=== PATIENT | male | born 1995 | race American Indian/Alaskan Native ===

== ENCOUNTER 2020-04-29 22:07 | Emergency (ER) | payer SELFPAY | END 2020-04-30 01:15 | disposition left against medical advice (07) | LOC: ED 22:07 | DX: Z00.8 Encounter for other general examination (principal); Z53.21 Procedure and treatment not carried out due to patient leaving prior to being seen by health care provider ==

== ENCOUNTER 2020-06-21 12:10 | Emergency (ER) | payer SELFPAY ==
--- NOTE | 2020-06-21 12:24 | Event Note ---
ED Screening Note Date of service: 06/21/20 Time: 12:21 ED Screening Note: Patient complains of dizziness starting this morning Denies headache, nausea/vomiting, neurological symptoms, chest pain, or shortness of breath Dizziness feels like lightheadedness No head trauma per patient This initial assessment/diagnostic orders/clinical plan/treatment(s) is/are subject to change based on patients health status, clinical progression and re- assessment by fellow clinical providers in the ED. Further treatment and workup at subsequent clinical providers discretion. Patient/guardian urged not to elope from the ED as their condition may be serious if not clinically assessed and managed. Initial orders include: Labs EKG
--- NOTE | 2020-06-21 12:34 | Emergency Department Report ---
ED General Adult HPI - General Chief complaint: Dizziness Stated complaint: DIZZINESS PUI?: No Time Seen by Provider: 06/21/20 12:20 Source: patient Mode of arrival: Ambulatory Limitations: No Limitations - History of Present Illness Initial comments: Patient is a 25-year-old -[place] male that comes to the emergency room with nausea, diarrhea and dizziness. He states that it started last night into this morning. He was at work and felt bad so they sent him here. He is ambulatory nontoxic and [id number] on arrival to the ER. He denies any abdominal pain per se. Patient endorses chills. He denies any known fever. Patient denies shortness of breath or chest pain. He denies any known exposure to Covid. He has not been immunized for COVID-19. He was tested back in April and was negative. Patient has a history of ulcerative colitis in 2016 but he has been without any symptoms for years. He denies any bloody diarrhea. He states that it is just watery diarrhea. He denies vomiting any blood. Patient has no hypotension, tachycardia or fever on arrival to the ER. -: Gradual, days(s) Consistency: intermittent Improves with: none Worsens with: none Associated Symptoms: fever/chills, nausea/vomiting, other (diarrhea). denies: confusion, chest pain, cough, diaphoresis, headaches, loss of appetite, malaise, shortness of breath, syncope, weakness - Related Data Previous Rx's Medication Instructions Recorded Last Taken Type Ondansetron [Zofran Odt] 4 mg PO Q8HR PRN #10 tab.rapdis 06/21/20 Unknown Rx Allergies Allergy/AdvReac Type Severity Reaction Status Date / Time No Known Allergies Allergy Verified 06/21/20 12:15 ED Review of Systems ROS: Stated complaint: DIZZINESS Other details as noted in HPI Comment: All other systems reviewed and negative ED Past Medical Hx - Past Medical History Previous Medical History?: Yes Additional medical history: ulcerative colitis - Surgical History Past Surgical History?: No - Family History Family history: no significant - Social History Smoking Status: Never Smoker Substance Use Type: Alcohol, Marijuana - Medications Home Medications: Home Medications Medication Instructions Recorded Confirmed Last Taken Type Ondansetron [Zofran Odt] 4 mg PO Q8HR PRN #10 tab.rapdis 03/17/21 Unknown Rx ED Physical Exam - General Limitations: No Limitations General appearance: alert, in no apparent distress - Head Head exam: Present: atraumatic, normocephalic - Eye Eye exam: Present: normal appearance - ENT ENT exam: Present: mucous membranes moist - Neck Neck exam: Present: normal inspection - Respiratory Respiratory exam: Present: normal lung sounds bilaterally. Absent: respiratory distress - Cardiovascular Cardiovascular Exam: Present: regular rate, normal rhythm. Absent: systolic murmur, diastolic murmur, rubs, gallop - GI/Abdominal GI/Abdominal exam: Present: soft, normal bowel sounds - Rectal Rectal exam: Present: deferred - Extremities Exam Extremities exam: Present: normal inspection - Back Exam Back exam: Present: normal inspection - Neurological Exam Neurological exam: Present: alert, oriented X3 - Psychiatric Psychiatric exam: Present: normal affect, normal mood - Skin Skin exam: Present: warm, dry, intact, normal color. Absent: rash ED Course Vital Signs 06/21/20 12:15 Temperature 98.6 F Pulse Rate 80 Respiratory 20 Rate Blood Pressure 150/82 O2 Sat by Pulse 100 Oximetry ED Medical Decision Making - Lab Data Result diagrams: 06/21/20 12:38 06/21/20 12:38 - EKG Data EKG shows normal: sinus rhythm Rate: normal - EKG Data When compared to previous EKG there are: no significant change Interpretation: no acute changes - Medical Decision Making Labs 06/21/20 06/21/20 06/21/20 12:38 12:38 13:04 WBC 11.3 H RBC 4.65 Hgb 13.4 Hct 40.1 MCV 86 MCH 29 MCHC 33 RDW 13.9 Plt Count 225 Lymph % (Auto) 24.5 [place] % (Auto) 6.5 Eos % (Auto) 2.0 Baso % (Auto) 0.4 Lymph # (Auto) 2.8 [place] # (Auto) 0.7 Eos # (Auto) 0.2 Baso # (Auto) 0.0 Seg Neutrophils % 66.6 Seg Neutrophils # 7.5 Sodium 137 Potassium 3.8 Chloride 99.3 Carbon Dioxide 28 Anion Gap 14 BUN 8 L Creatinine 1.1 Estimated GFR > 60 BUN/Creatinine Ratio 7 Glucose 113 H Calcium 9.6 Total Bilirubin 0.30 AST 21 ALT 25 Alkaline Phosphatase 106 Troponin T < 0.010 Total Protein 7.9 Albumin 4.5 Albumin/Globulin Ratio 1.3 Lipase 17 Urine Color Urine Turbidity Urine pH Ur Specific [place] Urine Protein Urine Glucose (UA) Urine Ketones Urine Blood Urine Nitrite Urine Bilirubin Urine Urobilinogen Ur Leukocyte Esterase Urine WBC (Auto) Urine RBC (Auto) 06/21/20 Unknown WBC RBC Hgb Hct MCV MCH MCHC RDW Plt Count Lymph % (Auto) [place] % (Auto) Eos % (Auto) Baso % (Auto) Lymph # (Auto) [place] # (Auto) Eos # (Auto) Baso # (Auto) Seg Neutrophils % Seg Neutrophils # Sodium Potassium Chloride Carbon Dioxide Anion Gap BUN Creatinine Estimated GFR BUN/Creatinine Ratio Glucose Calcium Total Bilirubin AST ALT Alkaline Phosphatase Troponin T Total Protein Albumin Albumin/Globulin Ratio Lipase Urine Color Colorless Urine Turbidity Clear Urine pH 6.0 Ur Specific [place] 1.002 L Urine Protein <15 mg/dl Urine Glucose (UA) Neg Urine Ketones Neg Urine Blood Neg Urine Nitrite Neg Urine Bilirubin Neg Urine Urobilinogen < 2.0 Ur Leukocyte Esterase Neg Urine WBC (Auto) < 1.0 Urine RBC (Auto) < 1.0 Vital Signs 06/21/20 12:15 Temperature 98.6 F Pulse Rate 80 Respiratory 20 Rate Blood Pressure 150/82 O2 Sat by Pulse 100 Oximetry Abdominal exam is unremarkable. He has no tenderness anterior and no CVA tenderness posterior. He has been in and out of the bathroom several times since his arrival to the [facility]. Patient was given a liter of normal saline before he was able to urinate. I will hydrate patient with a second liter of normal saline. On reexam at 1542 patient states that he feels much better after getting the fluids. His color is improved and he is sitting up in the stretcher. There is no change in exam his abdomen remains soft and nontender. Patient is taking p.o. He is keeping fluids down. After getting a second liter of fluids patient will DC home with discharge plan of care including PCP follow-up. Patient verbalizes understanding of discharge plan of care as outlined on his discharge summary. - Differential Diagnosis ro kid stone; pancreatitis; choleyst; gastroenteritis Critical care attestation.: If time is entered above; I have spent that time in minutes in the direct care of this critically ill patient, excluding procedure time. ED Disposition Clinical Impression: Gastroenteritis Disposition: DC-01 TO HOME OR SELFCARE Is pt being admited?: No Does the pt Need Aspirin: No Condition: Stable Instructions: Viral Gastroenteritis, Adult, [id number] Additional Instructions: BLAND DIET STAY WELL HYDRATED MOTRIN OR TYLENOL FOR PAIN ZOFRAN FOR NAUSEA OVER THE COUNTER LOMOTIL FOR DIARRHEA IF YOU NEED IT AVOID DRUGS AND ALCOHOL FOLLOW UP WITH PCP NEXT WEEK FOR A RECHECK TO BE SURE YOU ARE GETTING BETTER REFERRAL BELOW Prescriptions: Ondansetron [Zofran Odt] 4 mg PO Q8HR PRN #10 tab.rapdis PRN Reason: Vomiting Referrals: NGA BRYAN MD [Staff Physician] - 3-5 Days Forms: Work/School Release Form(ED) Time of Disposition: 13:37
[2020-06-21 12:59] LABS: Basophils % (Auto) 0.4 % (0.0-1.8); Eosinophils # (Auto) 0.2 K/mm3 (0.0-0.4); Hemoglobin 13.4 gm/dl (11.8-15.2); Lymphocytes # (Auto) 2.8 K/mm3 (1.2-5.4); Lymphocytes % (Auto) 24.5 % (13.4-35.0); Monocytes # (Auto) 0.7 K/mm3 (0.0-0.8); Monocytes % (Auto) 6.5 % (0.0-7.3)
[2020-06-21] MEDS ORDERED: SODIUM CHLORIDE 0.9% 1000 ML 1,000 ML IV ONE ×2 (13:05→15:20)
[2020-06-21 13:08] LABS: Hematocrit 40.1 % (35.5-45.6); Mean Corpuscular HGB Conc 33 % (32-34); Mean Corpuscular Volume 86 fl (84-94); Platelet Count 225 K/mm3 (140-440); Red Blood Count 4.65 M/mm3 (3.65-5.03); Red Cell Distribution Width 13.9 % (13.2-15.2)
[2020-06-21 13:18] LABS: Alanine Aminotransferase 25 units/L (7-56); Albumin 4.5 g/dL (3.9-5); BUN/Creatinine Ratio 7; Blood Urea Nitrogen 8 mg/dL (9-20); Calcium 9.6 mg/dL (8.4-10.2); Hemolysis Index 7
[2020-06-21 15:19] LABS: Bilirubin,Urine NEG (Negative); Blood,Urine NEG (Negative); Color,Urine Colorless (Yellow); Protein,Urine <15 mg/dL mg/dL (Negative); RBC,Urine < 1.0 /HPF (0.0-6.0); Urobilinogen,Urine < 2.0 mg/dL (<2.0); WBC,Urine < 1.0 /HPF (0.0-6.0)
[2020-06-21 15:29] LABS: Amphetamine Screen,Urine Negative; Benzodiazepines Screen,Urine Negative; Cocaine Screen,Urine Negative; Methadone Screen,Urine Negative; Opiate Screen,Urine Negative
[2020-06-21 15:47] LABS: Cannabinoid Screen,Urine Positive
[2020-06-21 18:16] VITALS: BP 128/89
--- NOTE | 2020-06-22 08:07 | Electrocardiograph Report ---
[facility] Test Date: 2020-06-21 Test Time: 12:24:06 Pat Name: CHAITANYA DINH Department: Room: Gender: M Server Systems Administrator: JAMISON : [id number] Requested By: SERENITY STROUD Order Number: [id number] Reading MD: Kirby Oropeza Measurements Intervals [place] Rate: 73 P: 73 VT: 149 QRS: 70 QRSD: 97 T: 60 QT: 394 QTc: 436 Interpretive Statements Sinus rhythm No previous ECG available for comparison Electronically Signed On 06-23-2020 6:42:34 PDT by Kirby rOopeza
== END 2020-06-21 18:18 | disposition home or self-care (01) ==
LOC: ED 12:10
DX: K52.9 Noninfective gastroenteritis and colitis, unspecified (principal); F12.90 Cannabis use, unspecified, uncomplicated; Z79.899 Other long term (current) drug therapy
CPT/HCPCS: 36415; 80053; 80307; 81001; 83690; 84484; 85025; 93005; 96360; 96361; 99283; J7030